=== PATIENT | female | born 1990 | race Two or more races ===

== ENCOUNTER 2016-08-30 22:16 | Emergency (ER) | payer SELFPAY ==
[~2016-08-30] VITALS: Ht 154.9 cm; Wt 74.8 kg
[2016-08-30 22:49] VITALS: BP 163/99
[2016-08-30] MEDS ORDERED: AMOX875T PO (23:02)
[2016-08-30] MEDS ORDERED: NAPR500T8 PO (23:02)
[2016-08-30] MEDS ORDERED: ACET-704 PO (23:02)
--- NOTE | 2016-08-30 23:03 | PHYS DOC ---
Past Medical History Past Medical History: No Pertinent History Past Surgical History: No Surgical History Alcohol Use: None Drug Use: None Adult General Chief Complaint Chief Complaint: DENTAL PROBLEM HPI HPI Patient is a 26 year old female who presents with right wisdom tooth dental pain that began one and a half weeks ago. Patient states she has an appointment with her dentist on Tuesday last week. Review of Systems Review of Systems Constitutional: Denies fever or chills [] Eyes: Denies change in visual acuity, redness, or eye pain [] HENT: right wisdom tooth Musculoskeletal: Denies back pain or joint pain [] Integument: Denies rash or skin lesions [] Neurologic: Denies headache, focal weakness or sensory changes [] Endocrine: Denies polyuria or polydipsia [] Physical Exam Physical Exam Constitutional: Well developed, well nourished, no acute distress, non-toxic appearance. [] HENT: Normocephalic, atraumatic, bilateral external ears normal, oropharynx moist, no oral exudates, nose normal. [] right wisdom tooth is cutting through the gum but appears to have dental carriers. Patient is missing multiple teeth including her right lower molars Dental carriers noted throughout her remaining teeth Skin: Warm, dry, no erythema, no rash. [] Back: No tenderness, no CVA tenderness. [] Extremities: No tenderness, no cyanosis, no clubbing, ROM intact, no edema. [] Neurologic: Alert and oriented X 3, normal motor function, normal sensory function, no focal deficits noted. [] Psychologic: Affect normal, judgement normal, mood normal. [] Current Patient Data Vital Signs Vital Signs Date Time Temp Pulse Resp B/P (MAP) Pulse Ox O2 Delivery O2 Flow Rate FiO2 08/30/16 22:49 98.5 98 18 96 Room Air 98.5 EKG EKG [] Radiology/Procedures Radiology/Procedures [] Course & Med Decision Making Course & Med Decision Making Pertinent Labs and Imaging studies reviewed. (See chart for details) Patient has infected dental caries. Discharged with Tylenol 3 and amoxicillin follow-up with the dentist on Tuesday as scheduled. Dragon Disclaimer Dragon Disclaimer This electronic medical record was generated, in whole or in part, using a voice recognition dictation system. Departure Departure Impression: Primary Impression: Dentalgia Additional Impression: Infected dental caries Disposition: 01 HOME, SELF-CARE Condition: STABLE Referrals: NO PCP (PCP) Follow-up with the dentist as soon as possible Patient Instructions: Dental Caries, Dental Pain Additional Instructions: You were seen for infected dental caries. Ensure you complete your antibiotics and follow up with a dentist on Tuesday as scheduled Scripts Amoxicillin (AMOXICILLIN) 875 Mg Tablet 1 TAB PO BID, #20 TAB Prov: PETRONA LAIRD APRN 08/30/16 Naproxen (NAPROXEN) 500 Mg Tablet.dr 1 TAB PO BID, #60 TAB 2 Refills Prov: PETRONA LAIRD APRN 08/30/16 Acetaminophen With Codeine (TYLENOL WITH CODEINE #3 TABLET) 1 Each Tablet 1 TAB PO PRN Q6HRS Y for PAIN, #30 TAB Prov: PETRONA LAIRD APRN 08/30/16 Problem Qualifiers PETRONA LAIRD APRN Aug 30, 2016 23:02
== END 2016-08-30 23:13 | disposition home or self-care (01) ==
LOC: ER 22:16
DX: K04.7 Periapical abscess without sinus (principal); K02.9 Dental caries, unspecified
CPT/HCPCS: 99283